=== PATIENT | female | born 1980 | race Caucasian/White ===

== ENCOUNTER 2016-10-17 00:37 | Inpatient (IN) | payer MEDICAID ==
[~2016-10-17] VITALS: Ht 162.6 cm; Wt 60.0 kg
[2016-10-17] MEDS ORDERED: D5%-LACTATED RINGERS 1,000 ML IV SCH (01:24)
[2016-10-17] MEDS ORDERED: OXYTOCIN 30U/ 0.9% NaCL 500ML 500 ML IV PRN (01:24)
[2016-10-17] MEDS ORDERED: AMPICILLIN 2 GM in SODIUM CHLORIDE 0.9% 100 ML IVPB STA (01:24)
[2016-10-17] MEDS ORDERED: OXYTOCIN 30U/ 0.9% NaCL 500ML 500 ML IV ONE (01:24)
[2016-10-17] MEDS: LACTATED RINGERS 1,000 ML IV SCH ×4 (01:28→13:11)
[2016-10-17] MEDS ORDERED: SODIUM CITRATE/CITRIC ACID 30 ML UDC PO PRN (01:30)
[2016-10-17] MEDS ORDERED: AMPICILLIN 1 GM in SODIUM CHLORIDE 0.9% 50 ML IVPB SCH (01:30)
[2016-10-17] MEDS ORDERED: FENTANYL PF 100 MCG/2ML IVPush PRN (01:30)
[2016-10-17] MEDS ORDERED: FENTANYL PF 100 MCG/2ML IV PRN (01:30)
[2016-10-17] MEDS ORDERED: METOCLOPRAMIDE 5 MG/ML, 2ML IVPush PRN (01:30)
[2016-10-17] MEDS ORDERED: LIDOCAINE/PF 1.5%-EPI 1:200K, 30ML ONE (01:56)
[2016-10-17] MEDS ORDERED: FENTANYL/BUPIV./NS/PF 250 ML EPIDCONT ONE (01:56)
[2016-10-17] MEDS ORDERED: PLEASE ENTER ALLERGIES MC SCH ×2 (02:00)
[2016-10-17] MEDS ORDERED: FENTANYL/BUPIV./NS/PF 250 ML EPIDCONT SCH (02:30)
[2016-10-17] MEDS ORDERED: LACTATED RINGERS 1,000 ML IVBOLUS PRN (02:30)
[2016-10-17] MEDS ORDERED: NEWBORN KIT ONE (04:19)
[2016-10-17] MEDS ORDERED: OXYTOCIN 30U/ 0.9% NaCL 500ML 500 ML ONE ×2 (09:47→13:04)
[2016-10-17] MEDS ORDERED: ONDANSETRON 2MG/ML, 2ML ONE (10:40)
[2016-10-17] MEDS ORDERED: OXYTOCIN 30U/ 0.9% NaCL 500ML 500 ML IV SCH (12:31)
[2016-10-17] MEDS ORDERED: HYDROcodone/APAP 5/325 TABLET PO PRN (13:00)
[2016-10-17] MEDS ORDERED: CALCIUM CARBONATE 500 MG TAB.CHEW PO PRN (13:00)
[2016-10-17] MEDS ORDERED: BISACODYL 10 MG SUPP PR PRN (13:00)
[2016-10-17] MEDS ORDERED: ACETAMINOPHEN 325 MG TABLET PO PRN ×2 (13:00)
[2016-10-17] MEDS ORDERED: MISOPROSTOL 200 MCG TABLET PR PRN (13:00)
[2016-10-17] MEDS ORDERED: ONDANSETRON 2MG/ML, 2ML IV PRN (13:00)
[2016-10-17] MEDS ORDERED: METHYLERGONOVINE 0.2 MG/ML IM PRN (13:00)
[2016-10-17] MEDS: OXYTOCIN 30U/ 0.9% NaCL 500ML 500 ML IV SCH ×2 (13:11→22:31)
[2016-10-17] MEDS ORDERED: IBUPROFEN 600 MG TABLET ONE (14:09)
[2016-10-17] MEDS ORDERED: HYDROcodone/APAP 5/325 TABLET ONE (14:09)
[2016-10-17] MEDS: HYDROcodone/APAP 5/325 TABLET PO PRN ×2 (14:11→16:34)
[2016-10-17] MEDS: IBUPROFEN 600 MG TABLET PO PRN ×2 (14:11→21:13)
[2016-10-17 15:34] VITALS: BP 129/78
[2016-10-17 19:15] VITALS: BP 111/73
[2016-10-17] MEDS: DOCUSATE 100 MG CAPSULE PO PRN (21:13)
[2016-10-18 00:55] VITALS: BP 91/54
[2016-10-18] MEDS: IBUPROFEN 600 MG TABLET PO PRN ×3 (03:32→19:41)
[2016-10-18] MEDS: HYDROcodone/APAP 5/325 TABLET PO PRN ×3 (03:32→19:42)
[2016-10-18 03:35] VITALS: BP 96/65
[2016-10-18 07:30] VITALS: BP 102/64
[2016-10-18] MEDS: PRENATAL VIT/IRON/FA 1 EACH TABLET PO SCH (09:44)
[2016-10-18] MEDS: DOCUSATE 100 MG CAPSULE PO PRN ×2 (09:44→19:41)
[2016-10-18 19:40] VITALS: BP 100/64
[2016-10-18] MEDS ORDERED: HYDR-3240 PO (22:15)
[2016-10-18] MEDS ORDERED: IBUP-1222 PO (22:16)
[2016-10-19 07:26] VITALS: BP 104/66
[2016-10-19] MEDS: IBUPROFEN 600 MG TABLET PO PRN (09:38)
[2016-10-19] MEDS: DOCUSATE 100 MG CAPSULE PO PRN (09:38)
[2016-10-19] MEDS: HYDROcodone/APAP 5/325 TABLET PO PRN (09:38)
[2016-10-19] MEDS: PRENATAL VIT/IRON/FA 1 EACH TABLET PO SCH (09:38)
== END 2016-10-19 14:51 | disposition home or self-care (01) | DRG 775 ==
LOC: LDOP 00:37 → LDIP 01:03 → 2NW 15:04
PROVIDERS: ADMIT Obstetrics & Gynecology; ATTEND Obstetrics & Gynecology
PROC: 10907ZC Drainage of Amniotic Fluid, Therapeutic from Products of Conception, Via Natural or Artificial Opening (ICD-10-PCS; principal; 2016-10-17)
PROC: 10E0XZZ Delivery of Products of Conception, External Approach (ICD-10-PCS; 2016-10-17)
PROC: 0UQMXZZ Repair Vulva, External Approach (ICD-10-PCS; 2016-10-17)
PROC: 00HU33Z Insertion of Infusion Device into Spinal Canal, Percutaneous Approach (ICD-10-PCS; 2016-10-17)
PROC: 3E0R3CZ (ICD-10-PCS; 2016-10-17)
DX: O99.824 Streptococcus B carrier state complicating childbirth (principal); O69.1XX0 Labor and delivery complicated by cord around neck, with compression, not applicable or unspecified; Z3A.39 39 weeks gestation of pregnancy; Z37.0 Single live birth; O09.523 Supervision of elderly multigravida, third trimester; O70.0 First degree perineal laceration during delivery
CPT/HCPCS: 36415; 85025; 86850; 86900; J0290; J2590; J7120